=== PATIENT | male | born 1960 | race Caucasian/White ===

== ENCOUNTER 2017-05-02 11:14 | Inpatient (IN) | payer OTHER ==
[~2017-05-02] VITALS: Ht 175.3 cm; Wt 133.8 kg
--- NOTE | ~2017-05-02 | HC ---
[facility] [place] [address] CONSULTATION Name: EDVIN COFFMAN Room #: 306-P ADM IN M.R.#: [id number] Admission: 05/02/17 Attend Phys: Kirill Rodriguez DO Discharge: Date of : 58 Report #: [id number] THIS REPORT FOR: //name// CC: FAM unknown Ronald Driver DATE OF SERVICE: 05/03/2017 ATTENDING PHYSICIAN: Ronald Driver MD. REASON FOR CONSULTATION: Fever. HISTORY OF PRESENT ILLNESS: The patient is a 57-year-old white man who started feeling unwell early Tuesday morning. He was evaluated in the Emergency Room on the date of admission with history of fever of 103 as well as sore throat. He has throat cultures obtained and those are negative so far. He, in view of being splenectomized in the past, is on vancomycin, Levaquin. Other than sore throat, he is doing well and the review of systems is negative. Specifically, he denies signs or symptoms suggestive of pneumonia. DRUG ALLERGIES: PENICILLIN. MEDICATIONS: The patient is currently on treatment with Levaquin 500 mg IV daily, vancomycin 1250 mg IV every 8 hours. He is also receiving treatment with docusate, furosemide, atorvastatin, p.r.n. oxycodone, lisinopril, hydrochlorothiazide, terazosin, p.r.n. ondansetron, gabapentin, ibuprofen, p.r.n. trazodone and lorazepam. PAST MEDICAL HISTORY: ITP diagnosed at age 8, subsequently required splenectomy. The patient is receiving immunizations by primary physician. I recommend Pneumovax and Prevnar vaccine. The patient had arthroscopic surgery to both knees. He had ruptured right bicipital tendon. He has undergone previous cervical spine diskectomy and placement of "plastic" artificial disk. There is a history of dyslipidemia, coronary artery disease, status post coronary artery stenting. Hypertension. Previous episode of pneumonia. SOCIAL HISTORY: [employer]. . Children. No tobacco. No alcohol. FAMILY HISTORY: See H and P. REVIEW OF SYSTEMS: Noncontributory besides what has been stated above. PHYSICAL EXAMINATION: GENERAL: Overweight white man, not toxic looking. VITAL SIGNS: Temperature maximum 102.5, down to 98.2, pulse 62, respirations 20, BP 120/85. Weight 133.8 kilograms, height [address] [address] CONSULTATION Name: EDVIN COFFMAN Room #: 306-P [facility] IN M.R.#: [id number] Admission: 05/02/17 Attend Phys: Kirill Rodriguez DO Discharge: Date of : 58 Report #: [id number] HEENMT: Within range. NECK: Supple. No thyromegaly or lymphadenopathy. are negative. LUNGS: Clear to auscultation. HEART: S1, S2. No gallop or murmur. ABDOMEN: Obese, soft, no masses or megaly. GENITALIA AND RECTAL: Deferred. EXTREMITIES: No clubbing, cyanosis. Deformities right biceps from previous biceps rupture. NEUROLOGIC: Grossly within normal limits. LABORATORY DATA: Cultures have remained all negative so far. Sodium 138, potassium 3.3, BUN 15, creatinine 1.3, CO2 of 26, albumin down to 3.3, normal on admission. WBC 15,800, hemoglobin 12.6 g/dL, platelets 237,000. Urinalysis, trace blood, otherwise negative. RADIOLOGY EVALUATION: Chest x-ray negative for pulmonary infiltrates. ASSESSMENT: 1. Fever of undetermined source, suspect viral infection. 2. Sore throat -- pharyngitis. 3. History of idiopathic thrombocytopenic purpura, status post splenectomy. 4. Mild hypoalbuminemia. SUGGESTIONS: Recommend obtaining ESR, CRP and procalcitonin. If those are negative plus negative blood cultures, recommend discontinuation of antibiotics and continue symptomatic treatment of viral pharyngitis. Dr. Driver, thank you for requesting my suggestions in the care of your patient. <ELECTRONICALLY SIGNED> By: Jose Hicks MD 05/04/17 [id number] Jose Hicks MD /nt
[2017-05-02 11:26] VITALS: BP 111/66
[2017-05-02] MEDS ORDERED: LASIX 20 MG TAB20 MG PO (11:38)
[2017-05-02] MEDS ORDERED: LIPITOR 20 MG T20 M1 PO (11:38)
[2017-05-02] MEDS ORDERED: TRAZODONE 150150 M1 PO (11:40)
[2017-05-02] MEDS ORDERED: HYTRIN 5 M5 MG/1 CAP PO (11:41)
[2017-05-02] MEDS ORDERED: ATIVAN0.5 M1 PO (11:41)
[2017-05-02] MEDS ORDERED: HYDROCHLOROTH12.5 M1 PO (11:41)
[2017-05-02] MEDS ORDERED: IBUPROFEN 400400 M2 PO (11:42)
[2017-05-02] MEDS ORDERED: ASPIR 8181 M1 PO (11:42)
[2017-05-02] MEDS ORDERED: FLEXERIL PO (11:42)
[2017-05-02] MEDS ORDERED: PERCOCET PO (11:42)
[2017-05-02] MEDS ORDERED: TRAMADOL 50 MG50 MG PO (11:42)
[2017-05-02] MEDS ORDERED: NEURONTIN 300300 M1 PO (11:43)
[2017-05-02] MEDS ORDERED: COLACE100 MG PO (11:43)
[2017-05-02 12:10] LABS: HEMATOCRIT 39.8 % (42.0-52.0); HEMOGLOBIN 14.3 gm/dL (14.0-18.0); MANUAL DIFF YES; MCH 34.4 pg (26.0-34.0); MCV 95.7 fL (80.0-100.0); PLATELET COUNT 273 thou/uL (150-400); RBC 4.15 mil/uL (4.50-6.00); RDW 13.8 % (10.5-14.5); WBC 15.2 thou/uL (4.0-11.0)
[2017-05-02 12:13] LABS: CALCIUM 9.3 mg/dL (8.5-10.1); CREATININE 1.3 mg/dL (0.7-1.3); POTASSIUM 3.7 mmol/L (3.5-5.1)
[2017-05-02 12:19] LABS: ALBUMIN 4.3 g/dL (3.4-5.0); TOTAL BILIRUBIN 0.4 mg/dL (<0.1-1.0); TOTAL PROTEIN 8.2 g/dL (6.4-8.2)
[2017-05-02 12:45] LABS: URINE BILIRUBIN NEGATIVE (Negative); URINE BLOOD TRACE (Negative); URINE COLOR YELLOW; URINE GLUCOSE-RANDOM* NEGATIVE (Negative); URINE KETONES NEGATIVE (Negative); URINE LEUKOCYTES-REFLEX NEGATIVE (Negative); URINE PROTEIN (DIPSTICK) NEGATIVE (Negative); URINE UROBILINOGEN 0.2 E.U./dl (0.2-1.0)
[2017-05-02 12:55] LABS: ABSOLUTE NEUTROPHILS 11.6 thou/uL (1.4-8.2); TOTAL CELL COUNT 100
[2017-05-02 15:26] VITALS: BP 111/66
[2017-05-02 15:49] VITALS: BP 104/48
[2017-05-02 20:00] VITALS: BP 145/106
[2017-05-02] MEDS ORDERED: PRINIVIL20 MG PO (21:02)
[2017-05-02] MEDS ORDERED: VITAMIN D1000 UNI1 PO (21:04)
[2017-05-03 00:05] VITALS: BP 127/73
[2017-05-03 04:00] VITALS: BP 110/70
[2017-05-03 04:54] LABS: HEMATOCRIT 36.9 % (42.0-52.0); HEMOGLOBIN 12.6 gm/dL (14.0-18.0); MCH 33.3 pg (26.0-34.0); MCHC 34.2 g/dL (28.0-37.0); MCV 97.2 fL (80.0-100.0); RBC 3.8 mil/uL (4.50-6.00); WBC 15.8 thou/uL (4.0-11.0)
[2017-05-03 05:21] LABS: ALBUMIN 3.3 g/dL (3.4-5.0); CALCIUM 8.4 mg/dL (8.5-10.1); CREATININE 1.3 mg/dL (0.7-1.3); POTASSIUM 3.3 mmol/L (3.5-5.1); TOTAL BILIRUBIN 0.3 mg/dL (<0.1-1.0)
[2017-05-03 07:51] VITALS: BP 120/85
[2017-05-03 15:40] VITALS: BP 106/53
[2017-05-03 20:00] VITALS: BP 118/62
[2017-05-04 04:00] VITALS: BP 100/61
[2017-05-04 08:00] VITALS: BP 140/84
[2017-05-04] MEDS ORDERED: DIFLUCAN200 MG PO (08:59)
[2017-05-04 09:01] LABS: HEMOGLOBIN 13.6 gm/dL (14.0-18.0); MCH 33.9 pg (26.0-34.0); MCHC 34.8 g/dL (28.0-37.0); MCV 97.5 fL (80.0-100.0); PLATELET COUNT 196 thou/uL (150-400); RBC 4.01 mil/uL (4.50-6.00); RDW 14.1 % (10.5-14.5); WBC 11.1 thou/uL (4.0-11.0)
[2017-05-04 09:02] LABS: MANUAL DIFF YES
[2017-05-04 09:16] LABS: CALCIUM 8.8 mg/dL (8.5-10.1); CREATININE 1.1 mg/dL (0.7-1.3); POTASSIUM 3.9 mmol/L (3.5-5.1)
[2017-05-04 09:33] LABS: ABSOLUTE NEUTROPHILS 4.4 thou/uL (1.4-8.2); PLATELET ESTIMATE NORMAL; TOTAL CELL COUNT 100
[2017-05-04 12:44] VITALS: BP 140/84
[2017-05-04 13:12] VITALS: BP 140/84
== END 2017-05-04 13:10 | disposition home or self-care (01) | DRG 872 ==
LOC: ER 11:14 → EROBS 14:29 → 3N 14:29
PROVIDERS: Family Medicine; Physician Assistant
DX: A41.9 Sepsis, unspecified organism (principal); Q89.01 Asplenia (congenital); R50.9 Fever, unspecified; J02.9 Acute pharyngitis, unspecified; I25.10 Atherosclerotic heart disease of native coronary artery without angina pectoris; E78.5 Hyperlipidemia, unspecified; I10 Essential (primary) hypertension; Z88.0 Allergy status to penicillin; Z90.81 Acquired absence of spleen; Z95.5 Presence of coronary angioplasty implant and graft; Z87.01 Personal history of pneumonia (recurrent)
CPT/HCPCS: 10096